=== PATIENT | female | born 1965 | race African-American/Black ===

== ENCOUNTER 2024-10-21 13:13 | Emergency (ER) | payer MEDICAID ==
[~2024-10-21] VITALS: Ht 172.7 cm; Wt 100.0 kg
[2024-10-21 13:29] VITALS: O2SAT 96
[2024-10-21] MEDS ORDERED: METH4TAB95 MT (15:06)
[2024-10-21] MEDS ORDERED: AZIT250T12 MT (15:06)
[2024-10-21] MEDS ORDERED: ALBU18HF2 IH (15:07)
[2024-10-21] MEDS ORDERED: GUAI120017 MT (15:09)
[2024-10-21 15:17] VITALS: BP 121/72; PULSE 67; RESP 16; TEMP 36.7; O2SAT 98
== END 2024-10-21 16:04 | disposition home or self-care (01) ==
LOC: ER 13:13
DX: R05.9 Cough, unspecified (principal); F17.210 Nicotine dependence, cigarettes, uncomplicated
CPT/HCPCS: 71045; 99283